=== PATIENT | female | born 1990 | race Caucasian/White ===

== ENCOUNTER 2017-12-05 16:05 | Emergency (ER) | payer OTHER ==
[2017-12-05 16:19] VITALS: BP 113/69; PULSE 81; TEMP 98; BMI 28.3
--- NOTE | 2017-12-05 16:25 | PDOC ---
History of Present Illness - General Chief Complaint: Pain, Acute Stated Complaint: URINARY PROBLEM Time Seen by Provider: 12/05/17 16:25 History Source: Patient Exam Limitations: No Limitations - History of Present Illness Initial Comments: 12/05/17 21:42 Ms. Brooke is a 27 yo F with a hx of recurrent UTIs who presents to the emergency department with suprapubic abdominal pain that radiates to the back. She states she felt she had a UTI this past Thursday and went to the pharmacy receiving a prescription of ciprofloxacin (she does not have a PMD). She states the suprapubic pain has worsened since then and is now sharp, constant 10/10 that increases with urination. She has associative nausea and dysuria. Denies having vaginal discharge and blood. Denies the following: fever, chills, recent visual changes, headaches, chest pain, SOB, hematuria, diarrhea, melena, hematochezia, and leg pain/swelling. Shx: C/S in jan 2008 Wellness: LMP in 2014 (currently on Nexplanon) Meds: None Social hx: Denies tobacco, alcohol, and substance abuse. Past History - Past Medical History Allergies/Adverse Reactions: Allergies Allergy/AdvReac Type Severity Reaction Status Date / Time No Known Allergies Allergy Verified 12/05/17 16:12 Home Medications: Ambulatory Orders Nitrofurantoin Macrocrystal [Nitrofurantoin] 100 mg PO BID #10 capsule 12/05/17 COPD: No - Suicide/Smoking/Psychosocial Hx Smoking History: Never smoked Review of Systems - Review of Systems Able to Perform ROS?: Yes Constitutional: No: Chills, Diaphoresis, Fever HEENTM: No: Eye Pain, Recent change in vision, Ear Pain, Nose Pain, Throat Pain , Mouth Pain Respiratory: No: Cough, Shortness of Breath Cardiac (ROS): No: Chest Pain, Edema, Irregular Heart Rate, Lightheadedness, Palpitations, Syncope, Chest Tightness ABD/GI: No: Abd. Pain w/ defecation, Constipated, Diarrhea, Nausea, Poor Fluid Intake, Rectal Bleeding, Vomiting, Abdominal cramping, Tarry Stools : Yes: Dysuria, Other (suprapubic pain). No: Burning, Flank Pain, Hematuria Musculoskeletal: Yes: Back Pain (lower back). No: Joint Pain, Muscle Pain, Neck Pain Integumentary: No: Bruising, Rash Neurological: No: Headache, Numbness, Tingling, Tremors, Weakness, Ataxia, Dizziness Psychiatric: No: Stressors Endocrine: No: Unexplained Weight Gain Hematologic/Lymphatic: No: Anemia *Physical Exam - Vital Signs Last Vital Signs Temp Pulse Resp BP Pulse Ox 98.0 F 81 18 113/69 99 12/05/17 16:13 12/05/17 16:13 12/05/17 16:13 12/05/17 16:13 12/05/17 16:13 - Physical Exam General Appearance: Yes: Nourished, Appropriately Dressed HEENT: positive: EOMI, NICKI, Normal Voice, Symmetrical Neck: positive: Trachea midline. negative: Lymphadenopathy (R), Lymphadenopathy (L) Respiratory/Chest: positive: Lungs Clear, Normal Breath Sounds. negative: Chest Tender, Respiratory Distress, Accessory Muscle Use, Crackles, Rales, Stridor, Wheezing, Hyperresonant Cardiovascular: positive: Regular Rhythm, Regular Rate, S1, S2. negative: Systolic Murmur Vascular Pulses: Dorsalis-Pedis (R): 3+, Doralis-Pedis (L): 3+ Female Pelvic Exam: positive: normal external exam, cervical os closed, adnexal tenderness (Right adnexal tenderness). negative: discharge, Bartholin mass, vaginal bleeding Gastrointestinal/Abdominal: positive: Normal Bowel Sounds, Tender (suprapubic and right lower quadrant ), Soft Lymphatic: negative: Adenopathy Musculoskeletal: positive: Normal Inspection, CVA Tenderness (L). negative: CVA Tenderness (R) Extremity: positive: Normal Capillary Refill, Normal Inspection, Normal Range of Motion. 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 negative: EOM Palsy, Facial Droop, Sensory Deficit, Confused, Disoriented ED Treatment Course - LABORATORY CBC & Chemistry Diagram: 12/05/17 17:19 12/05/17 17:19 Medical Decision Making - Medical Decision Making 27 yo F with a hx of a recent UTI on cipro presenting with worsening suprapubic pain with RLQ pain and lower back pain that worsens with dysuria likely secondary to abx failure UTI. ddx: UTI, pyelo, cystitis, ovarian cysts, ovarian torsion, ectopic , appendicitis, colitis, ileitis Initial vitals Initial Vital Signs Temp Pulse Resp BP Pulse Ox 98.0 F 81 18 113/69 99 12/05/17 16:13 12/05/17 16:13 12/05/17 16:13 12/05/17 16:13 12/05/17 16:13 Work up: Laboratory Tests 12/05/17 12/05/17 12/05/17 16:58 17:19 17:19 WBC 11.4 H RBC 4.38 Hgb 13.8 Hct 40.0 MCV 91.4 MCH 31.4 MCHC 34.4 RDW 12.1 Plt Count 340 MPV 7.8 Absolute Neuts (auto) 7.0 Neutrophils % 61.2 Lymphocytes % 28.8 Monocytes % 6.3 Eosinophils % 2.9 Basophils % 0.8 Nucleated RBC % 0 Sodium 141 Potassium 4.0 Chloride 106 Carbon Dioxide 27 Anion Gap 8 BUN 8 Creatinine 0.6 Creat Clearance w eGFR > 60 Random Glucose 92 Calcium 9.0 Total Bilirubin 0.3 AST 19 ALT 28 Alkaline Phosphatase 123 H Total Protein 7.7 Albumin 4.0 Urine Color Straw Urine Appearance Clear Urine pH 6.0 Ur Specific [place] 1.001 Urine Protein Negative Urine Glucose (UA) Negative Urine Ketones Negative Urine Blood 2+ H Urine Nitrite Negative Urine Bilirubin Negative Urine Urobilinogen Negative Ur Leukocyte Esterase 3+ H Urine WBC (Auto) 50 Urine RBC (Auto) 1 Ur Epithelial Cells Rare Urine Bacteria Rare Urine HCG, Qual Negative Ultrasound report showed some trace fluid in the cul-de-sac of the uterus and bilateral ovarian cysts. The CT abdomen pelvis with IV contrast did not show appendicitis and pyelonephritis without hydronephrosis. Her labs indicate a 3+ leuk esterase and 50 WBC and 2+ blood on urine exam with a slight elevation of WBC. Likely this is UTI and will prescribe nitrofurantoin to replace the levoquin. Instructed her to discontinue the ciprofloxacin and continue with the new antibiotics. I referred her to our clinic and she agrees to follow up. Dispo: DC to home *DC/Admit/Observation/Transfer Diagnosis at time of Disposition: Ovarian cyst Qualifiers: Laterality: bilateral Qualified Code(s): N83.201 - Unspecified ovarian cyst, right side UTI (urinary tract infection) Qualifiers: Urinary tract infection type: site unspecified Hematuria presence: without hematuria Qualified Code(s): N39.0 - Urinary tract infection, site not specified - Discharge Dispostion Disposition: HOME Condition at time of disposition: Fair Decision to Admit order: No - Prescriptions Prescriptions: Nitrofurantoin Macrocrystal [Nitrofurantoin] 100 mg PO BID #10 capsule - Referrals Referrals: [facility] [place] [Provider Group] Larisa Gutiérrez MD [Staff Physician] - - Patient Instructions Additional Instructions: You have been seen in the emergency department for abdominal pain and urinary pain. Your ultrasound indicated that you have bilateral ovarian cysts and your CT abdomen was negative for appendicitis and pyelonephritis. Your urinary analysis showed 3+ leukocyte esterase and 50 WBC with 2+ blood. This is likely due to a urinary tract infection. Please follow up with the primary medical doctor that you have been referred to. Please see them within 24-36 hours for follow up care. Take the antibiotics as prescribed. Please return to the emergency department if you have worsening of symptoms or develop new concerning symptoms such as fevers, chills, or blood in the urine. Se lo parker visto en el departamento de emergencias por dolor abdominal y dolor urinario. Brink ecografa indic que tiene quistes ovricos bilaterales y que brink abdomen CT fue negativo para apendicitis y pielonefritis. Brink anlisis urinario mostr 3+ leucocitos esterasa y 50 leucocitos con 2+ joselyn. [place] es probablemente debido a [place] infeccin del tracto urinario. Por favor kirit un seguimiento con el mdico primario al que lo de oliveira recomendado. Valos dentro de las 24-36 horas para recibir atencin de seguimiento. [place] los antibiticos segn lo prescrito. Regrese al servicio de urgencias si tiene un empeoramiento de los sntomas o desarrolla nuevos sntomas preocupantes, annabella fiebre, escalofros o joselyn en la orina. - Post Discharge Activity
--- NOTE | 2017-12-05 17:13 | PDOC ---
Attending Attestation - Resident Resident Name: Nic Iraheta - ED Attending Attestation I have performed the following: I have examined & evaluated the patient, The case was reviewed & discussed with the resident, I agree w/resident's findings & plan, Exceptions are as noted - HPI HPI: 12/05/17 17:10 27yo F no sig PMH presents with 5 days of suprapubic pain a/w R sided flank pain , nausea, and dysuria. Pt has been on cipro since symptom onset with no improvement in symptoms. Denies vag discharge, hematuria. Denies fevers, chills. No hx renal colic. Denies CP, SOB, diarrhea, consti Reports this feels like last UTI. No fevers/chills - Physicial Exam PE: 12/05/17 17:12 GENERAL: Awake, alert, and fully oriented, in no acute distress HEAD: No signs of trauma EYES: PERRLA, EOMI, sclera anicteric, conjunctiva clear ENT: Auricles normal inspection, hearing grossly normal, nares patent, oropharynx clear without exudates. Moist mucosa NECK: Normal ROM, supple, no lymphadenopathy, JVD, or masses LUNGS: Breath sounds equal, clear to auscultation bilaterally. No wheezes, and no crackles HEART: Regular rate and rhythm, normal S1 and S2, no murmurs, rubs or gallops ABDOMEN: Soft, +suprapubic ttp, minimal RLQ ttp, negative mcburney's sign normoactive bowel sounds. No guarding, no rebound. No masses. No CVAT EXTREMITIES: Normal range of motion, no edema. No clubbing or cyanosis. No cords, erythema, or tenderness NEUROLOGICAL: Normal speech, cranial nerves intact, 5/5 strength in all 4 extremities, normal sensation to light touch in all 4 extremities SKIN: Warm, Dry, normal turgor, no rashes or lesions noted. - Medical Decision Making 12/05/17 19:20 27yo F presents to the ED with suprapubic pain a/w dysuria despite 5 day course of cipro. VItals wnl. Exam with supapubic and mild RLQ ttp. Pelvic with R adnexal discomfort. TVUS pending. Pt will likely also need a CTAP to evaluate for renal colic vs pyelo vs appy. Pt signed out to overnight attending for further mgmt/dispo
[2017-12-05 17:26] LABS: URINE APPEARANCE CLEAR; URINE BILIRUBIN NEGATIVE (<2.0 mg/dL); URINE COLOR STRAW; URINE GLUCOSE (UA) NEGATIVE (NEGATIVE); URINE KETONE NEGATIVE (NEGATIVE); URINE NITRITE NEGATIVE (NEGATIVE); URINE PROTEIN NEGATIVE (NEGATIVE); URINE UROBILINOGEN NEGATIVE mg/dL (0.2-1.0)
[2017-12-05 17:35] LABS: BASO % 0.8 % (0-2.0); EOS % 2.9 % (0-4.5); HEMOGLOBIN 13.8 GM/dL (10.7-15.3); LYMPH % 28.8 % (8-40); MCH 31.4 pg (25.7-33.7); MCHC 34.4 g/dl (32.0-36.0); MEAN CELL VOLUME 91.4 fl (80-96); MEAN PLT VOLUME 7.8 fl (7.5-11.1); MONO % 6.3 % (3.8-10.2); NEUT % 61.2 % (42.8-82.8); PLATELET COUNT 340 K/MM3 (134-434); RBC 4.38 M/mm3 (3.60-5.2); RDW 12.1 % (11.6-15.6); WHITE BLOOD COUNT 11.4 K/mm3 (4.0-10.0)
[2017-12-05 17:43] LABS: URINE LEUK ESTERASE 3+ (NEGATIVE)
[2017-12-05 17:45] LABS: EPI CELLS RARE /HPF (FEW); URINE BACTERIA RARE /hpf (NONE SEEN)
[2017-12-05 17:47] LABS: HCG,QUALITATIVE URINE NEGATIVE
[2017-12-05 17:59] LABS: ANION GAP 8 MMOL/L (8-16); BILIRUBIN,TOTAL 0.3 mg/dL (0.2-1.0); BLOOD UREA NITROGEN 8 mg/dL (7-18); CHLORIDE 106 mmol/L (98-107); CO2 27 mmol/L (21-32); CREATININE 0.6 mg/dL (0.55-1.3); GLUCOSE,RANDOM 92 mg/dL (74-106); SGPT/ALT 28 U/L (13-61); SODIUM 141 mmol/L (136-145)
[2017-12-05 18:00] LABS: ALK PHOS 123 U/L (45-117); TOT PROT 7.7 g/dl (6.4-8.2)
[2017-12-05 18:03] LABS: SGOT/AST 19 U/L (15-37)
== END 2017-12-05 23:30 | disposition home or self-care (01) ==
LOC: JER 16:05
DX: N39.0 Urinary tract infection, site not specified (principal); N83.201 Unspecified ovarian cyst, right side
CPT/HCPCS: 36415; 74177-TC; 76830-TC; 80053; 81003; 81015; 84703; 85025; 87081; 87086; 87491; 87591; 99282-25

== ENCOUNTER 2019-02-18 01:50 | Inpatient (IN) | payer OTHER ==
[2019-02-18] MEDS ORDERED: BUTORPHANOL TARTRATE 2 MG/ML VIAL IVPB ONE (02:30)
[2019-02-18] MEDS ORDERED: PROMETHAZINE HCL 25 MG/1 ML VIAL IVPB ONE (02:30)
[2019-02-18 02:55] LABS: BASO % 0.4 % (0-2.0); EOS % 1.3 % (0-4.5); HEMATOCRIT 36.2 % (32.4-45.2); HEMOGLOBIN 12.2 GM/dL (10.7-15.3); LYMPH % 23.6 % (8-40); MCH 28.2 pg (25.7-33.7); MCHC 33.6 g/dl (32.0-36.0); MEAN CELL VOLUME 83.9 fl (80-96); MEAN PLT VOLUME 8.7 fl (7.5-11.1); MONO % 5.2 % (3.8-10.2); NEUT % 69.5 % (42.8-82.8); PLATELET COUNT 321 K/MM3 (134-434); RBC 4.32 M/mm3 (3.60-5.2); RDW 13.8 % (11.6-15.6); WHITE BLOOD COUNT 14.2 K/mm3 (4.0-10.0)
[2019-02-18 03:07] LABS: INR 0.92 (0.83-1.09); PROTHROMBIN TIME (PATIENT) 10.9 SEC (9.7-13.0)
[2019-02-18 03:10] LABS: ACTIVATED PTT 30.8 SECONDS (25.2-36.5)
[2019-02-18] MEDS ORDERED: ELECTROLYTE-148 SOLN 500 ML IV ONE ×2 (03:15→04:15)
[2019-02-18 03:17] LABS: BLOOD UREA NITROGEN 13.2 mg/dL (7-18); CALCIUM 8.6 mg/dL (8.5-10.1); CREATININE 0.8 mg/dL (0.55-1.3); POTASSIUM 4.1 mmol/L (3.5-5.1)
[2019-02-18 03:35] VITALS: BMI 40.6
[2019-02-18] MEDS ORDERED: BUTORPHANOL TARTRATE 1 MG/ML VIAL ONE ×2 (03:42)
[2019-02-18] MEDS ORDERED: PROMETHAZINE HCL 25 MG/1 ML VIAL ONE (03:42)
[2019-02-18] MEDS ORDERED: NALOXONE HCL 0.4 MG/ML VIAL IVPUSH PRN (04:04)
[2019-02-18] MEDS ORDERED: BUPIVACAINE HCL/PF 2.5 MG/ML - 30 ML VIAL IJ ONE (04:06)
[2019-02-18] MEDS ORDERED: FENTANYL/BUPIVACAINE/NS/PF - PCEA - 50 ML DISP.SYRIN EP ONE (04:10)
[2019-02-18] MEDS: FENTANYL/BUPIVACAINE/NS/PF - PCEA - 50 ML DISP.SYRIN EP SCH (04:15)
--- NOTE | 2019-02-18 04:50 | HP ---
Past Medical History - Admission Chief Complaint: Labor pain History of Present Illness: 28 yo @ 39 weeks gestation, EDC 02/23/19, admitted for labor pain. Upon admission she was 1cm dilated but quickly progressed to 4cm. She had one prior and desired . History Source: Patient Limitations to Obtaining History: No Limitations - Past Medical History ...: 2 ...Para: 1 ...Term: 0 ...: 1 ...Spon : 0 ...Induced : 0 ...Multiple Gestation: 0 ...LMP: 03/23/18 ... Weeks Gestation by Dates: 39.2 ...EDC by Dates: 02/23/19 - Past Surgical History Past Surgical History: Yes: None Hx Myomectomy: No Hx Transabdominal Cerclage: No - Smoking History Smoking history: Never smoked - Alcohol/Substance Use Hx Alcohol Use: No - Social History Usual Living Arrangement: Yes: With Significant Other, With Child History of Recent Travel: No Home Medications - Allergies Allergies/Adverse Reactions: Allergies Allergy/AdvReac Type Severity Reaction Status Date / Time No Known Allergies Allergy Verified 12/05/17 16:12 - Home Medications Home Medications: Ambulatory Orders Nitrofurantoin Macrocrystal [Nitrofurantoin] 100 mg PO BID #10 capsule 12/05/17 Family Medical History Family History: Unremarkable Review of Systems - Review of Systems Constitutional: reports: No Symptoms Eyes: reports: No Symptoms HENT: reports: No Symptoms Neck: reports: No Symptoms Cardiovascular: reports: No Symptoms Respiratory: reports: No Symptoms Gastrointestinal: reports: No Symptoms Genitourinary: reports: Pain Breasts: reports: No Symptoms Reported Musculoskeletal: reports: No Symptoms Integumentary: reports: No Symptoms Neurological: reports: No Symptoms Endocrine: reports: No Symptoms Hematology/Lymphatic: reports: No Symptoms Psychiatric: reports: No Symptoms Pain Intensity: 9 Physical Exam - Maternity Constitutional: Yes: Well Nourished Eyes: Yes: Conjunctiva Clear HENT: Yes: Atraumatic Neck: Yes: Supple Cardiovascular: Yes: Regular Rate and Rhythm Lungs: Clear to auscultation - Abdominal Exam/OB Number of Fetuses: Single Presentation: Vertex Contractions: Yes Regularity: Regular Intensity: Strong - Vaginal Exam/OB Dilatation (cm): 4 Effacement (%): 90 Amniotic Membrane Status: Ruptured Presentation: Vertex/Position Station: -1 - Physical Exam Musculoskeletal: Yes: WNL Extremities: Yes: WNL ...Motor Strength: WNL Psychiatric: Yes: Alert, Oriented - Labs Lab Results: CBC, BMP 02/18/19 02:30 02/18/19 02:30 Problem List - Problems (1) 39 weeks gestation of Problems reviewed: Yes Code(s): Z3A.39 - 39 WEEKS GESTATION OF (2) Active labor at term Problems reviewed: Yes Code(s): XEB5528 - Assessment/Plan 39 weeks gestation Active labor Admit to L&D Analgesia as needed Anticipate
[2019-02-18] MEDS ORDERED: LIDOCAINE HCL 1% PRESERVATIVE FREE - 30ML VIAL ONE (05:11)
[2019-02-18] MEDS ORDERED: OXYTOCIN 20 UNITS in 0.9% NS 40 UNIT/2,000 ML INFUS.BAG IV ONE (05:12)
[2019-02-18] MEDS ORDERED: METHYLERGONOVINE MALEATE 0.2 MG/1 ML AMP IM PRN (05:52)
[2019-02-18] MEDS ORDERED: WITCH HAZEL 50% (TUCKS) 40 PAD/JAR PAD TP PRN (05:52)
[2019-02-18] MEDS ORDERED: BISACODYL 10 MG SUPP.RECT RC PRN (05:52)
[2019-02-18] MEDS ORDERED: BENZOCAINE 20% 57 GM BOTTLE TP PRN (05:52)
[2019-02-18] MEDS ORDERED: BENZOCAINE 28 GM HEMORRHOIDAL OINTMENT TP PRN (05:52)
--- NOTE | 2019-02-18 05:56 | PN ---
Delivery - Delivery Vaginal Delivery: V-Omar Type of Anesthesia: Epidural Episiotomy/Laceration: Midline EBL (cc): 300 Delivery, Single - Feeding Plan Initial Plan: Elected not to breastfeed exclusively throughout hospitalization Remarks - Remarks Remarks: Vaginal after prior of a live girl over midline episiotomy. Nose / Oropharynx suctioned @ perineum. Cord clamped and cut. Baby handed to nurse. Placenta expelled spontaneously intact. Midline episiotomy repaired with 2.0 Chromic Mother in stable condition.
[2019-02-18] MEDS: OXYTOCIN 20 UNITS in 0.9% NS 20 UNIT/1,000 ML INFUS.BAG IV SCH (06:00)
[2019-02-18] MEDS: PRENATAL VITAMINS W/ FOLIC ACID TABLET (FP) PO SCH (10:17)
[2019-02-18] MEDS: FERROUS SO4 325 MG TABLET (FP) PO SCH ×2 (10:18→21:33)
[2019-02-18] MEDS: IBUPROFEN 600 MG TABLET (FP) PO PRN ×2 (11:56→19:55)
[2019-02-18] MEDS: ACETAMINOPHEN 325 MG TABLET (FP) PO PRN ×2 (11:57→19:55)
[2019-02-19] MEDS: ACETAMINOPHEN 325 MG TABLET (FP) PO PRN ×3 (05:26→21:02)
[2019-02-19] MEDS: IBUPROFEN 600 MG TABLET (FP) PO PRN ×3 (05:26→21:02)
[2019-02-19 09:28] LABS: BASO % 0.6 % (0-2.0); EOS % 2.2 % (0-4.5); HEMATOCRIT 34.8 % (32.4-45.2); HEMOGLOBIN 11.3 GM/dL (10.7-15.3); LYMPH % 27.9 % (8-40); MCH 27.5 pg (25.7-33.7); MCHC 32.4 g/dl (32.0-36.0); MEAN CELL VOLUME 84.9 fl (80-96); MEAN PLT VOLUME 8.6 fl (7.5-11.1); NEUT % 65.3 % (42.8-82.8); PLATELET COUNT 319 K/MM3 (134-434); WHITE BLOOD COUNT 13.1 K/mm3 (4.0-10.0)
[2019-02-19] MEDS: FERROUS SO4 325 MG TABLET (FP) PO SCH ×2 (09:36→21:01)
[2019-02-19] MEDS: PRENATAL VITAMINS W/ FOLIC ACID TABLET (FP) PO SCH (09:36)
[2019-02-19] MEDS ORDERED: DIPHTH,PERTUSS(ACELL),TET 0.5 ML DISP.SYRIN IM ONE (10:00)
[2019-02-19] MEDS: DEXTROSE 5%-LACTATED RINGERS 1,000 ML IV SCH ×2 (19:04→19:05)
[2019-02-19] MEDS: ELECTROLYTE-148 SOLN 1,000 ML IV SCH (19:05)
[2019-02-19] MEDS: FENTANYL/BUPIVACAINE/NS/PF - PCEA - 50 ML DISP.SYRIN EP SCH (19:06)
[2019-02-19] MEDS: OXYTOCIN 20 UNITS in 0.9% NS 20 UNIT/1,000 ML INFUS.BAG IV SCH (19:06)
[2019-02-19] MEDS ORDERED: SENNOSIDES/DOCUSATE COMBO (SENNA PLUS) TABLET (UD) PO PRN (22:00)
--- NOTE | 2019-02-19 23:41 | PN ---
Post Note - Post Date of Delivery: 02/18/19 Post Day: 1 Vital Signs: Vital Signs - 24 hr 02/19/19 02/19/19 02/19/19 01:57 10:00 21:19 Temperature 98.1 F 97.8 F 97.7 F Pulse Rate 70 79 68 Respiratory 18 18 18 Rate Blood Pressure 114/48 L 118/75 126/66 Labs: Laboratory Results - last 24 hr 02/19/19 08:55 WBC 13.1 H RBC 4.10 Hgb 11.3 Hct 34.8 MCV 84.9 MCH 27.5 MCHC 32.4 RDW 14.0 Plt Count 319 MPV 8.6 Absolute Neuts (auto) 8.6 H Neutrophils % 65.3 Lymphocytes % 27.9 Monocytes % 4.0 Eosinophils % 2.2 Basophils % 0.6 Nucleated RBC % 0 - Subjective Subjective: No Complaints - Objective Afebrile: Yes Breast: Not engorged Abdomen: Soft, Non-tender Uterus: Fundus firm Vagina: Scant lochia Extremities: Non-tender - Assessment/Plan (1) (vaginal after ) Assessment: Other (SP ) Plan: Routine Care
[2019-02-20] MEDS: ACETAMINOPHEN 325 MG TABLET (FP) PO PRN (05:37)
[2019-02-20] MEDS: IBUPROFEN 600 MG TABLET (FP) PO PRN (05:37)
--- NOTE | 2019-02-20 08:11 | DS ---
Physical Exam-P[employer]LE [employer]ER Vital Signs: Vital Signs Temperature 97.7 F 02/19/19 21:19 Pulse Rate 68 02/19/19 21:19 Respiratory Rate 18 02/19/19 21:19 Blood Pressure 126/66 02/19/19 21:19 O2 Sat by Pulse Oximetry (%) 100 02/18/19 05:15 Constitutional: Yes: Well Nourished Eyes: Yes: Conjunctiva Clear HENT: Yes: Atraumatic Neck: Yes: Supple Cardiovascular: Yes: Regular Rate and Rhythm Respiratory: Yes: Regular Gastrointestinal: Yes: Normal Bowel Sounds ...Rectal Exam: Yes: WNL Renal/: Yes: WNL Pelvis: Yes: WNL External Genitalia: Yes: Normal Vaginal Exam: Yes: Normal Cervix: Yes: Normal Uterus: Yes: Firm ....Post : Yes: Uterus firm, Moderate lochia serosa Extremities: Yes: WNL Integumentary: Yes: WNL Neurological: Yes: Alert, Oriented Labs: CBC, BMP 02/19/19 08:55 02/18/19 02:30 Delivery - Delivery Vaginal Delivery: V-Omar Type of Anesthesia: Epidural Episiotomy/Laceration: Midline EBL (cc): 300 Delivery, Single - Stages of Labor Date 1st Stage Initiatied: 02/18/19 Time 1st Stage Initiated: 01:00 Date 2nd Stage Initiated: 02/18/19 Time 2nd Stage Initiated: 05:10 Date of Delivery: 02/18/19 Time of Delivery: 05:28 Time Placenta Delivered: 05:32 - Condition of Mounter 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/Offset 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 Present: No Infant Gender: Female Weight: 8 lb 7 oz Position: Right, OA Total Hours ROM (Hrs/Mins): 1h28m - 1 Minute Total Score: 9 5 Minutes Total Score: 9 - [place] Feeding Plan Initial Plan: Elected not to breastfeed exclusively throughout hospitalization Discharge Summary Problems reviewed: Yes Reason For Visit: ADMIT Current Active Problems 39 weeks gestation of (Acute) Active labor at term (Acute) (vaginal after ) (Acute) Procedures: Principal: Vaginal after Hospital Course: Routine care Health Concerns: Thromboembolic event Plan of Treatment: Analgesia Ambulation Follow up with MD in 6 weeks Goals: Resume normal activities in 6 weeks Condition: Good - Instructions Diet, Activity, Other Instructions: Physical activity Resume your normal everyday activity as tolerated no heavy lifting or exercise until seen by your surgeon. You may walk unlimited jelena of and climb stairs. You may resume driving the car when you feel safe and comfortable behind the wheel. No sexual activity as instructed. Wound care If you have a bandage, leave it on, and keep dry for 48-72 hours. After that time discard the outer bandage. If they are tapes on the skin under the out of bandage leave them in place. They will peel off in the next 7 to 10 days. Do Not Peel them off. You may shower the day after surgery. If there are tapes present on the skin, you may shower over them. Diet There are no dietary restrictions. Eat healthy, high-fiber foods. Drink 6 to 8 glasses of liquid each day. This will assist in keeping your bowels are regular. Pain management You may take Tylenol or acetaminophen or Ibuprofen (for example, Motrin, Advil etc.) from my pain prescription medication is ordered should be taken as prescribed for moderate to severe pain. Call MD for any of the following: Severe pain not relieved by medication Fever of 101 or higher Excessive bleeding or drainage on dressing Inability to urinate Referrals: Hiwot Liu MD [Staff Physician] - Disposition: HOME - Home Medications Comprehensive Discharge Medication List: Ambulatory Orders Nitrofurantoin Macrocrystal [Nitrofurantoin] 100 mg PO BID #10 capsule 12/05/17 Ibuprofen [Motrin -] 600 mg PO QID #28 tablet 02/19/19
[2019-02-20] MEDS: PRENATAL VITAMINS W/ FOLIC ACID TABLET (FP) PO SCH (09:42)
[2019-02-20] MEDS: FERROUS SO4 325 MG TABLET (FP) PO SCH (09:42)
[2019-02-20 11:58] VITALS: BP 129/85; PULSE 74; TEMP 97.9
== END 2019-02-20 12:10 | disposition home or self-care (01) | DRG 560 ==
LOC: JDEL 01:50 → JLDR 02:20 → J3W 08:22
PROVIDERS: ADMIT Obstetrics & Gynecology; ATTEND Obstetrics & Gynecology
PROC: 10E0XZZ Delivery of Products of Conception, External Approach (ICD-10-PCS; principal; 2019-02-18)
PROC: 0W8NXZZ Division of Female Perineum, External Approach (ICD-10-PCS; 2019-02-18)
DX: O34.211 Maternal care for low transverse scar from previous cesarean delivery (principal); Z3A.39 39 weeks gestation of pregnancy; Z37.0 Single live birth
CPT/HCPCS: 36415; 59409; 80048; 85025; 85610; 85730; 86593; 86850; 86900; 86901; 90715

== ENCOUNTER 2019-09-16 20:06 | Emergency (ER) | payer OTHER ==
[2019-09-16 20:13] VITALS: BP 117/65; PULSE 89; TEMP 98.8; BMI 36.6
[2019-09-16] MEDS ORDERED: KETOROLAC TROMETHAMINE 30 MG/1 ML VIAL IM ONE (20:38)
[2019-09-16] MEDS ORDERED: KETOROLAC TROMETHAMINE 30 MG/1 ML VIAL ONE (21:14)
== END 2019-09-16 21:25 | disposition home or self-care (01) ==
LOC: JERFT 20:06
PROC: 3E0233Z Introduction of Anti-inflammatory into Muscle, Percutaneous Approach (ICD-10-PCS; principal; 2019-09-16)
DX: G56.03 Carpal tunnel syndrome, bilateral upper limbs (principal)
CPT/HCPCS: 99284-25